=== PATIENT | female | born 2000 | race Caucasian/White ===

== ENCOUNTER → 2024-10-29 | Outpatient (CLI) | payer OTHER, SELFPAY ==
[2024-10-29 15:27] LABS: Hematocrit 40.9 % (37-47); Hemoglobin 13.6 g/dL (12.0-15.0); Immature Granulocytes Count 0.020 X10^3/uL (0.0-0.0); Mean Corp Hgb Conc 33.3 g/dL (32-36); Mean Corpuscular Volume 90.3 fL (81-99); Mean Platelet Vol. 10.3 fl (6.2-12.0); NRBC Flagged by Analyzer 0 % (0-5); Platelet Count 283 K/mm3 (150-450); RBC Distribution Width CV 12.2 % (11.6-14.6); RBC Distribution Width SD 40.5 fl (35.1-43.9); Red Blood Count 4.53 M/mm3 (4.2-5.4); White Blood Count 6.3 K/mm3 (4.4-11.0)
[2024-10-29 16:05] LABS: AST(SGOT) 21 U/L (<=31); Alanine Aminotransfer ALT/SGPT 15 U/L (<=34); Albumin, Serum 4.6 g/dL (3.5-5.0); Alkaline Phosphatase 50 U/L (35-104); Anion Gap 13 (5-15); BUN 15 mg/dL (4-19); BUN/Creat Ratio 19.4 RATIO (10-20); Calcium,Total 9.7 mg/dL (7.6-11.0); Carbon Dioxide 20.2 mmol/L (21.0-32.0); Chloride 105 mmol/L (98-108); Cholesterol 187 mg/dL (<=190); Ferritin 39 ng/mL (22-378); Globulin 2.6 g/dL (2.2-4.2); Glucose 90 mg/dL (70-99); Low Density Lipoprotein Calc. 109 mg/dL; Potassium 4.3 mmol/L (3.3-5.1); Triglycerides 47 mg/dL; Very Low Density Lipoprotein 9 mg/dL (5-40); Vitamin B12 616 pg/mL (180-914); Vitamin D,25 Hydroxy 15.3 ng/mL (30-100); cholesterol:hdl ratio screen 2.75
[2024-10-29 16:40] LABS: Iron 118 ug/dL (50-170)
== END | disposition home or self-care (01) ==
LOC: BFHLAB 11:21
PROVIDERS: PCP Nurse Practitioner Family; Visit Provider Nurse Practitioner Family
DX: Z00.01 Encounter for general adult medical examination with abnormal findings (principal); R53.83 Other fatigue
CPT/HCPCS: 36415; 80053; 80061; 82306; 82607; 82728; 83540; 84439; 84443; 85025